=== PATIENT | female | born 1940 | race Caucasian/White ===

== ENCOUNTER 2017-12-13 08:12 | Outpatient (CLI) | payer MEDICARE ==
--- NOTE | 2017-12-13 09:09 | RAD ---
CERVICAL SPINE FIVE VIEWS: History: Pain. Comparison: None. FINDINGS: Predental space is normal. There is no prevertebral soft tissue swelling. Cervical spine and vertebra l body height is maintained. Mild degenerative disc disease throughout the cervical spine starting at C3-4 down to the C6-7 level. In the neutral position, there is stable normal cervical lordosis, with out significant listhesis. Grade I anterolisthesis at C3 upon C4 is noted. Upon flexion, there is no significant change of the anterolisthesis of C3 upon C4. Upon extension, anterolisthesis resolves. On the open mouth projection, evaluation of the odontoid process is limited. On the AP projection, de generative changes of the facets. No malalignment. IMPRESSION: Degenerative changes of the cervical spine as above. POS: [facility]
--- NOTE | 2017-12-13 10:47 | MRI ---
MRI CERVICAL SPINE WITHOUT CONTRAST: Date: 12/13/17 HISTORY: Back spasm that radiates down the left leg for several years. Symptoms have been progressively worsen ing. COMPARISON: None. TECHNIQUE: Cervical spine MRI is performed without intravenous Gadolinium administration. Multisequential, multi planar imaging is performed. FINDINGS: There is appropriate T1 marrow signal intensity of the cervical vertebra. Cervical spine vertebral ab dy height is maintained. No fracture. No significant STIR hyperintensity to suggest vertebral body ed jeramy or ligamentous injury. Visualized brain parenchyma, cervicomedullary junction, cervical cord, and the upper thoracic cord [place] ve an overall normal size and signal intensity. There is 2.4 mm of anterolisthesis of C3 upon C4. C2-C3: No significant disc osteophyte complex. No significant central canal stenosis. Neural foramina are pa tent. C3-C4: Broad based disc osteophyte complex abuts the thecal sac. No significant central canal stenosis. Neur al foramina are patent bilaterally. C4-C5: No significant disc osteophyte complex. No significant central canal stenosis. Right neural foramen i s patent. Mild to moderate left foraminal narrowing due to degenerative change of the uncovertebral j oint and facet hypertrophy. C5-C6: Broad based disc osteophyte complex with a central component that abuts the thecal sac. Mild central canal stenosis. Degenerative changes of bilateral uncovertebral joints results in moderate bilateral foraminal narrowing. C6-C7: Broad based disc osteophyte complex abuts the thecal sac. No significant central canal stenosis. Mild right and mild to moderate left foraminal narrowing. C7-T1: No significant disc osteophyte complex. No significant central canal stenosis. Neural foramina are pa tent. IMPRESSION: Degenerative changes of the cervical spine as detailed above. POS: [facility]
--- NOTE | 2017-12-13 10:52 | MRI ---
MRI THORACIC SPINE WITHOUT CONTRAST: Date: 12/13/17 HISTORY: Thoracic spine pain. Back spasm, radiating down left leg for many years. Progressive worsening. COMPARISON: None. TECHNIQUE: Thoracic spine MRI is performed without intravenous Gadolinium administration. Multisequential, multi planar imaging performed. FINDINGS: Appropriate T1 marrow signal intensity at the level of the thoracic vertebra. Thoracic spine vertebra l body height is maintained. No fracture. Type I Modic changes centered at the T5-T6 level. Type II M odic changes are noted at additional levels. Visualized mediastinal structures, lung parenchyma, and osseous structures are unremarkable. The thoracic cord is overall normal size and signal intensity. Conus medullaris terminates at the sup erior aspect of L1. Throughout the thoracic spine, no high grade central canal stenosis or high grade foraminal narrowing . IMPRESSION: 1. No high grade central canal stenosis or high grade foraminal narrowing. 2. Type I and Type II Modic changes as detailed above. No significant loss of vertebral body height. POS: [facility]
--- NOTE | 2017-12-13 11:04 | MRI ---
LUMBAR SPINE MRI WITHOUT CONTRAST: History: Lumbar radiculopathy. Back spasm with radiation down the left leg x several years. Progressi ve worsening. Comparison: None. Technique: MRI of the lumbar spine is performed without intravenous gadolinium administration. Multis equential, multiplanar imaging was performed. FINDINGS: Appropriate T1 marrow signal intensity of the lumbar vertebrae. There are type II Modic changes at th e L4-5 disc space. Lumbar spine vertebral body height is maintained. No fracture. 3 mm of anterolisth esis of L5 upon S1. No associated spondylosis. Vacuum disc phenomenon at L4-5 and L5-S1. Appropriate signal intensity of the psoas muscles. Symmetric signal intensity of the visualized solid organs. Conus medullaris terminates at the L1 level. T12-L1: Adequate disc hydration. No significant central canal stenosis or foraminal narrowing. L1-2: Adequate disc hydration. No significant central canal stenosis or foraminal narrowing. L2-3: Disc desiccation with mild loss of disc space height. Minimal disc bulge and minimal ligamentum flavum thickening and facet hypertrophy are present resulting in minimal central canal stenosis. Mil d to moderate bilateral foraminal narrowing. L3-4: Disc desiccation with mild loss of disc space height. No significant posterior disc abnormality . No significant central canal stenosis. Mild to moderate right and left foraminal narrowing. L4-5: Adequate disc hydration. No significant posterior disc abnormality. No significant canal stenos is. Moderate right and mild left foraminal narrowing. L5-S1: No significant posterior disc abnormality. No significant central canal stenosis. There is marianne ateral facet hypertrophy with small amounts of fluid in both intraarticular facet joints. No high gra de central canal stenosis. Mild bilateral neural foraminal narrowing. IMPRESSION: Degenerative changes of the lumbar spine as above. POS: [facility]
== END 2017-12-13 08:13 | disposition home or self-care (01) ==
LOC: TBSIIMAG 08:12
PROVIDERS: ATTEND Surgery
DX: M47.26 Other spondylosis with radiculopathy, lumbar region (principal); M54.2 Cervicalgia; M54.6 Pain in thoracic spine; M47.892 Other spondylosis, cervical region; M48.8X4 Other specified spondylopathies, thoracic region
CPT/HCPCS: 72050; 72141; 72146; 72148